=== PATIENT | female | born 1990 | race Caucasian/White ===

== ENCOUNTER 2021-09-01 13:27 | Emergency (ER) | payer MEDICAID ==
[2021-09-01] MEDS ORDERED: Aspirin 81 MG Tab.Chew PO ONE (13:35)
[2021-09-01 14:22] LABS: BLOOD UREA NITROGEN,BUN 15 mg/dL (7.0-18.0); CARBON DIOXIDE,CO2 27.1 mmol/L (21.0-32.0); CHLORIDE,CL 102 mmol/L (98-107); GLUCOSE RANDOM 90 mg/dL (74-106); POTASSIUM,K 3.5 mmol/L (3.5-5.1); SODIUM,NA 138 mmol/L (136-145)
== END 2021-09-01 15:01 | disposition home or self-care (01) ==
LOC: MW.ED 13:27
DX: R07.81 Pleurodynia (principal); Z20.822 Contact with and (suspected) exposure to COVID-19
CPT/HCPCS: 36415; 71045; 71045-26; 80053; 84484; 84703; 85025; 85379; 85610; 85730; 93005; 93010; 99284; 99284-25; A9270-GY; U0002

== ENCOUNTER 2024-07-19 07:55 | Day surgery (SDC) | payer BC ==
[~2024-07-19 07:55] MED LIST: Sodium Chloride 0.9% 10 ML Syringe FLUSH PRN; Sodium Chloride 0.9% 2.5 ML Syringe FLUSH PRN; Sodium Chloride 0.9% 20 ML SDV IV PRN; ceFAZolin 2 GM in Sodium Chloride 0.9% 50 ML IV ONE
[2024-07-19] MEDS ORDERED: Ondansetron 4 MG/2 ML SDV IVPUSH PRN (08:13)
[2024-07-19] MEDS ORDERED: fentaNYL 50 MCG/ML SDV IVPUSH PRN (08:13)
[2024-07-19] MEDS ORDERED: Naloxone 0.4 MG/ML SDV IVPUSH PRN (08:13)
[2024-07-19] MEDS ORDERED: Albuterol 0.083% 2.5 MG/3 ML Neb Soln NEB PRN (08:13)
[2024-07-19] MEDS ORDERED: Metoclopramide 10 MG/2 ML SDV IVPUSH PRN (08:13)
[2024-07-19] MEDS ORDERED: Morphine 2 MG/ML SYRINGE IVPUSH PRN (08:13)
[2024-07-19] MEDS ORDERED: Phenylephrine HCl In 0.9% NaCl 1 MG/10 ML Syringe IVPUSH PRN (08:13)
[2024-07-19] MEDS: Lactated Ringers 1,000 ML IV SCH (08:20)
[2024-07-19] MEDS ORDERED: Bupivacaine 0.5% 30 ML SDV ONE (08:38)
[2024-07-19] MEDS ORDERED: Lidocaine 1% 20 ML MDV ONE (08:38)
[2024-07-19] MEDS ORDERED: Midazolam 1 MG/ML 2 ML SDV ONE (09:36)
[2024-07-19] MEDS ORDERED: fentaNYL 100 MCG/2 ML SDV ONE (09:36)
[2024-07-19] MEDS ORDERED: Propofol 200 MG/20 ML SDV ONE (09:36)
[2024-07-19] MEDS ORDERED: Rocuronium Bromide 50 MG/5 ML Syringe ONE (09:37)
[2024-07-19] MEDS ORDERED: Lidocaine 1% 5 ML VIAL ONE (09:37)
[2024-07-19] MEDS ORDERED: Ropivacaine 0.5% 5 MG/ML 30 ML SDV ONE (09:41)
[2024-07-19] MEDS ORDERED: ceFAZolin 1 GM Vial ONE (09:58)
[2024-07-19] MEDS ORDERED: Sugammadex Sodium 200 MG/2 ML VIAL IV ONE (10:05)
[2024-07-19] MEDS ORDERED: Dexamethasone 4 MG/ML 5 ML MDV ONE (10:05)
[2024-07-19] MEDS ORDERED: Ondansetron 4 MG/2 ML SDV ONE (10:05)
[2024-07-19] MEDS ORDERED: Ketorolac 30 MG/ML SDV ONE (10:05)
[2024-07-19] MEDS ORDERED: ePHEDrine 50 MG/ML SDV ONE (10:36)
[2024-07-19] MEDS: HYDROmorphone 1 MG/ML Syringe IVPUSH PRN (11:09)
[2024-07-19] MEDS: Acetaminophen 500 MG Tab PO ONE (11:45)
== END 2024-07-19 12:50 | disposition home or self-care (01) ==
LOC: MW.SDS 07:55
PROVIDERS: ATTEND Surgery
DX: K42.0 Umbilical hernia with obstruction, without gangrene (principal); D17.1 Benign lipomatous neoplasm of skin and subcutaneous tissue of trunk; F32.A Depression, unspecified; Z87.891 Personal history of nicotine dependence; Z79.899 Other long term (current) drug therapy
CPT/HCPCS: 21931; 49592; 81025; A9270; J0665; J0690; J1100; J1171; J1885; J2003; J2250; J2405; J2704; J2795; J3010; J7120; 00790; J3490